=== PATIENT | female | born 2000 | race Caucasian/White ===

== ENCOUNTER → 2018-01-15 | Outpatient (CLI) | payer BC | LOC: COL.RAD 16:00 | DX: N83.201 Unspecified ovarian cyst, right side (principal) | CPT/HCPCS: Q9967 ==

== ENCOUNTER 2018-11-10 18:18 | Outpatient (CLI) | payer MEDICAID ==
[~2018-11-10] VITALS: Ht 180.3 cm; Wt 86.8 kg
--- NOTE | 2018-11-10 18:05 | NUR ---
Patient ambulatory to LR4 with significant other, changed into gown, FHR/TOCO monitor placed. Patient states she thinks her water broke water around 0200 am and has continues to trickle, denies any regular contractions or vaginal bleeding. SVE-2-3/70/-2 and amniotest negative and white/yellow discharge on gloves. Plan of care discussed.
[2018-11-10 18:15] VITALS: BP 118/63; PULSE 101; TEMP 97.7
[2018-11-10 18:30] VITALS: BP 118/63; PULSE 101; TEMP 98.7
[2018-11-10] MEDS ORDERED: IRON TABLETS325 MG PO (18:42)
[2018-11-10] MEDS ORDERED: PRENATAL MVI (18:42)
--- NOTE | 2018-11-10 19:05 | NUR ---
SVE unchanged from previous exam. Amnitrace negative. Bag of water felt on exam and no return of fluid with SVE. Category 1 FHR tracing. Pt feels comfortable going home.
--- NOTE | 2018-11-10 19:15 | NUR ---
Discharge instructions reviewed with patient and FOB, pt verbalized understanding. Return precautions reviewed. Pt seen ambulating off unit with FOB.
== END 2018-11-10 19:15 | disposition home or self-care (01) ==
LOC: LDRO 18:18 → LDR 18:18 → LDRO 19:15 → LDR 11-12 16:00
DX: O42.92 Full-term premature rupture of membranes, unspecified as to length of time between rupture and onset of labor (principal); Z3A.37 37 weeks gestation of pregnancy
CPT/HCPCS: OP

== ENCOUNTER 2018-11-13 14:16 | Outpatient (CLI) | payer BC, MEDICAID ==
[~2018-11-13] VITALS: Ht 180.3 cm; Wt 86.8 kg
[~2018-11-13 14:16] MED LIST: IRON TABLETS325 MG PO; PRENATAL MVI
--- NOTE | 2018-11-13 14:20 | NUR ---
Patient ambulatory onto unit for labor check. Patient reports leaking of fluid and contractions. States she was seen over the weekend for leaking of fluid. Patient reports good movement, denies vaginal bleeding. , 37.4wks. GBS-. Denies or medical complications. EFMs on, VS taken. AmniTrace negative. AmniSure completed per order. SVE /-2 per Aguila HAMPTON. Assessment completed.
[2018-11-13 14:30] VITALS: BP 126/62; PULSE 95; TEMP 97.7
[2018-11-13 15:00] VITALS: BP 116/55; PULSE 105
--- NOTE | 2018-11-13 15:10 | NUR ---
Patient sitting upright in bed. EFMs adjusted. Patient updated to Negative AmniSure. Discharge orders per . Patient verbalizes understanding. Will continue to monitor FHR and prepare for discharge home.
[2018-11-13 15:30] VITALS: BP 100/59; PULSE 85
--- NOTE | 2018-11-13 15:45 | NUR ---
Discharge instructions given to patient. Return labor precautions reviewed. Patient instructed to return with any decreased movement, leaking of fluid, vaginal bleeding, or regular/painful contractions. Verbalized understanding. Questions answered. Ambulatory off of unit at this time.
== END 2018-11-13 15:45 | disposition home or self-care (01) ==
LOC: LDRO 14:16
DX: O62.9 Abnormality of forces of labor, unspecified (principal); O42.92 Full-term premature rupture of membranes, unspecified as to length of time between rupture and onset of labor; Z3A.37 37 weeks gestation of pregnancy

== ENCOUNTER 2018-11-15 16:38 | Inpatient (IN) | payer BC, MEDICAID ==
[~2018-11-15] VITALS: Ht 180.3 cm; Wt 86.8 kg
[2018-11-15] VITALS (18 sets, daily range): BP systolic 98–128; BP diastolic 53–76; PULSE 77–113; TEMP 97.9–98.2
--- NOTE | 2018-11-15 17:00 | NUR ---
G1 at 37.6 weeks gestation to LDR5 with c/o contractions q2-3 minutes. Patient changed into gown and wedged left in bed. EFMs explained and applied. FHR 150 bpm and reactive. CTX q2-4 minutes per toco, patient breathing through them. VSS. Patient reports good movement, denies leaking of fluid or vaginal bleeding. Dr. Holland on unit and to patient room. SVE by Dr. Holland /bulgy bag of water. Orders to admit with routine labors orders received. Plan of care reviewed.
--- NOTE | 2018-11-15 17:30 | NUR ---
to bedside. AROM at 1729, moderate amount of clear fluid noted with exam. SVE 5/100/-2 per provider. Plan of care discussed. Questions answered. Mother and FOB at bedside. Call light within reach.
[2018-11-15 17:38] LABS: BASO % 0.2 % (0.0-2.0); EOS % 0.3 % (0-4.0); GRAN # 8.3 (1.4-6.5); GRAN % 69.9 % (42.2-75.2); HEMOGLOBIN 11.5 g/dl (12.0-15.0); LYMPH # 2.6 (1.2-3.4); MEAN CELL VOLUME 97 fl (80.0-95.0); MEAN CORPUSCULAR HEMOGLOBIN 33 pg (26.0-32.0); MEAN CORPUSCULAR HGB CONC 34 g/dl (33.0-37.0); MEAN PLATELET VOLUME 9.8 fl (7.4-10.4); MONO # 0.8 (0.1-0.6); MONO % 6.8 % (1.7-9.3); PLATELET COUNT 223 K/mm3 (130-400); RED BLOOD COUNT 3.49 M/mm3 (4.10-5.30); REDCELL DISTRIBUTION WIDTH-CV 12.6 % (11.5-14.5)
--- NOTE | 2018-11-15 17:50 | NUR ---
Patient up to bathroom. Breathing through contractions. Patient requests to ambulate around room and use birthing ball. Plan of care discussed. Questions answered. Mother and FOB remain supportive at bedside. Call light within reach.
--- NOTE | 2018-11-15 18:45 | NUR ---
182 - Pt requesting epidural, Rivas Wahl CRNA notified. Will come to hospital. 1829 - Pt requesting SVE prior to epidural, 184 - ADRYAN Burdick at bedside. Epidural procedure, risks, and benefits reviewed with patient, pt verbalized understanding. Pt positioned to sitting on edge of bed. 1844 - Single shot by ADRYAN Burdick. Pt denies any adverse reactions. 1849 - Pt positioned to wedge left with pillow support. Call light within reach. Safety precautions and plan of care reviewed. See anesthesia record. 1854 - SVE by
[2018-11-15] MEDS ORDERED: MOTRIN 800800 MG/TAB PO (19:03)
[2018-11-15] MEDS ORDERED: PERCOCET 325 MG1 TA2 PO (19:03)
--- NOTE | 2018-11-15 20:40 | NUR ---
2029 - Pt called out stating she was feeling more pressure. SVE by Dr. Holland complete and +2. Pt educated on pushing techniques. Intial push at this time. 2031 - Nogueira catheter removed at this time. 100 mL clear yellow urine. Pt pushing well with contractions. 2037 - Dr. Holland gowned and gloved at perineum. Nursery at bedside. 2039 - Spontaneous vaginal delivery of viable infant girl. Infant placed on mothers abdomen, care of assumed to MEMO Hutson. Cord clamped by Dr. Holland and cut by FOB. Pitocin off at this time. 2042 - Spontaneous delivery of intact placenta. Pitocin infusing at 333 mL/hr. Fundal massage by this RN, boggy with free flow, fundus firms up after massage. Dr. Holland repairs right labial laceration and 1st degree perineal laceration. 2054 - Pericare provided. New chux pad beneath patient. Ice pack to perineum. Pt repositioned in bed for comfort. recovery started. See physician delivery note.
--- NOTE | 2018-11-16 01:45 | NUR ---
Pt able to lift and hold each leg off of bed for 5 seconds. Pt positioned to sitting on edge of bed. Epidural catheter removed. Tip smooth, blue, and intact. Pt tolerated well. Pt able to ambulate to bathroom independently. Pt able to void 900 mL. Pericare explained and provided. New mesh panties and peripad on. Clean gown on. Pt educated on what to expect with bleeding and need for 2 more measured voids. Pt ambulated to room 207 with belongings.
[2018-11-16 02:00] VITALS: BP 128/59; PULSE 112; TEMP 97.7
[2018-11-16 07:00] VITALS: BP 95/51; PULSE 85; TEMP 98.9
--- NOTE | 2018-11-16 09:06 | NUR ---
Initial visit; Mom indisposed, Dad and Grandmother present. Hand Glove Cleaner offered congratulations and God's blessings for the of their daughter and thanked them for choosing our hospital.
[2018-11-16 11:20] VITALS: BP 121/74; PULSE 105; TEMP 97.9
[2018-11-16 16:40] VITALS: BP 107/48; PULSE 71; TEMP 97.9
[2018-11-16 20:30] VITALS: BP 108/56; PULSE 80; TEMP 98.8
[2018-11-17 07:30] VITALS: BP 102/53; PULSE 73; TEMP 97
== END 2018-11-17 09:50 | disposition home or self-care (01) | DRG 807 ==
LOC: LDRO 16:38 → OB 18:20 → LDR 18:20 → OB 11-16 01:50
PROVIDERS: ADMIT Obstetrics & Gynecology
PROC: 10E0XZZ Delivery of Products of Conception, External Approach (ICD-10-PCS; principal; 2018-11-15)
PROC: 0HQ9XZZ Repair Perineum Skin, External Approach (ICD-10-PCS; 2018-11-15)
DX: O62.0 Primary inadequate contractions (principal); Z37.0 Single live birth; O70.0 First degree perineal laceration during delivery; Z3A.37 37 weeks gestation of pregnancy
CPT/HCPCS: J2590; J2795; J7120

== ENCOUNTER 2021-12-16 12:34 | Emergency (ER) | payer OTHER ==
[~2021-12-16] VITALS: Ht 180.3 cm; Wt 71.4 kg
[~2021-12-16 12:34] MED LIST changes: +MOTRIN 800800 MG/TAB PO; +PERCOCET 325 MG1 TA2 PO
[2021-12-16 12:43] VITALS: TEMP 98.3
[2021-12-16 13:42] LABS: HEMOGLOBIN 11.1 g/dl (12.5-16.0); MEAN CELL VOLUME 94 fl (80.0-100.0); MEAN CORPUSCULAR HEMOGLOBIN 31 pg (27-31); MEAN CORPUSCULAR HGB CONC 33 g/dl (33.0-37.0); MEAN PLATELET VOLUME 9.7 fl (7.4-10.4); PLATELET COUNT 187 K/mm3 (130-400); RED BLOOD COUNT 3.55 M/mm3 (4.10-5.30); REDCELL DISTRIBUTION WIDTH-CV 12.4 % (11.5-14.5)
[2021-12-16 13:45] LABS: HEMATOCRIT 33.5 % (37.0-47.0)
[2021-12-16 13:55] LABS: ALBUMIN 3.4 gm/dL (3.5-5.0); BILIRUBIN,TOTAL 1.6 mg/dL (0.2-1.2); CALCIUM 8.7 mg/dL (8.4-10.2); CREATININE, serum 0.79 mg/dL (0.57-1.11); POTASSIUM 3.3 mmol/L (3.5-4.5); TOTAL PROTEIN 6.8 gm/dL (6.2-8.1)
[2021-12-16 14:10] LABS: BAND 22 % (0-10); LYMPHOCYTE 5 % (20.0-51.0); NEUTROPHILS 69 % (42.0-75.2); PLATELET ESTIMATE NORMAL (NORMAL)
[2021-12-16 14:46] LABS: COLLECTION METHOD CLEAN CATCH
[2021-12-16 14:56] LABS: MUCOUS Present (NOT PRESENT); URINE BACTERIA Moderate /hpf (NONE SEEN)
[2021-12-16 14:58] LABS: PH 5.5 (5-8); URINE APPEARANCE Cloudy (CLEAR/HAZY); URINE COLOR Yellow (YELLOW); URINE GLUCOSE Negative (NEGATIVE); URINE KETONE TRACE (NEGATIVE); URINE PROTEIN(semi-quant) 1+ (NEGATIVE)
[2021-12-16 14:59] LABS: URINE BLOOD Negative (NEGATIVE); URINE NITRATE Negative (NEGATIVE)
[2021-12-16] MEDS ORDERED: PROMETHAZINE D473 ML PO (15:40)
[2021-12-16] MEDS ORDERED: CEPHALEXIN500 M1 PO (15:41)
[2021-12-16 15:51] VITALS: BP 99/54; PULSE 106
== END 2021-12-16 15:51 | disposition home or self-care (01) ==
LOC: COL.ER 12:34
PROVIDERS: Physician Assistant
DX: K52.9 Noninfective gastroenteritis and colitis, unspecified (principal); E87.6 Hypokalemia; R78.81 Bacteremia; Z88.0 Allergy status to penicillin; Z32.02 Encounter for pregnancy test, result negative; Z28.310 Unvaccinated for COVID-19
CPT/HCPCS: J1885; J2405; J7030

== ENCOUNTER 2023-01-16 06:12 | Inpatient (IN) | payer MEDICAID ==
[2023-01-16] VITALS (21 sets, daily range): BP systolic 70–122; BP diastolic 51–87; PULSE 71–111; TEMP 97.8–99
[~2023-01-16] VITALS: Ht 180.3 cm; Wt 92.3 kg
[~2023-01-16 06:12] MED LIST changes: +CEPHALEXIN500 M1 PO; +COLACE 100100 MG/CAP PO; +PRENATAL TABLET PO; +PROMETHAZINE D473 ML PO; +VALTREX1 GM PO
--- NOTE | 2023-01-16 06:20 | NUR ---
PT AMBULATORY TO UNIT ALONE, SAID HER MOM "WOULD BE COMING IN ALITTLE." PT REPORTS FEELING IRREGULAR CTX NOT PAINFUL EVERY 6-10 MIN, NO LOF, NO VAGINAL BLEEDING OR SPOTTING, AND POSITIVE MOVEMENT. PT VS STABLE EFM CAT 1, FHR 150'S, ACCELS, NO DECELS. CTX EVERY 3-4 MIN ON MONITOR. PT POSITIVE AND SOCIALIZING.
[2023-01-16 07:28] LABS: BASO % 0.3 % (0.0-2.0); EOS % 0.6 % (0.0-4.0); GRAN # 4.3 K/mm3 (1.4-6.5); GRAN % 59.8 % (42.2-75.2); HEMOGLOBIN 12.3 g/dl (12.5-16.0); LYMPH # 2.2 K/mm3 (1.2-3.4); LYMPH % 30.3 % (20.0-51.0); MEAN CELL VOLUME 99 fl (80.0-100.0); MEAN CORPUSCULAR HEMOGLOBIN 34 pg (27-31); MEAN CORPUSCULAR HGB CONC 35 g/dl (33.0-37.0); MEAN PLATELET VOLUME 9.7 fl (7.4-10.4); MONO # 0.6 K/mm3 (0.1-0.6); MONO % 8.4 % (1.7-9.3); PLATELET COUNT 187 K/mm3 (130-400); RED BLOOD COUNT 3.61 M/mm3 (4.10-5.30)
[2023-01-16 07:29] LABS: HEMATOCRIT 35.7 % (37.0-47.0)
--- NOTE | 2023-01-16 08:15 | NUR ---
0814 AT BEDSIDE. 0815 AROM SMALL AMOUNT OF CLEAR FLUID, PT TOLERATES WELL. PT VS STABLE, EFM CAT 1, PT REPOSITIONED COMFORTABLY IN BED.
--- NOTE | 2023-01-16 09:33 | NUR ---
0923 JAVID CORNELIUS AT BEDSIDE FOR EPIDURAL PLACEMENT. PT SITTING AT EDGE OF BED, VS STABLE, EFM CAT 1. 0933 TEST DOSE ADMINISTERED PER JAVID BALL MACHINE OPERATOR. PT TOLERATED WELL. PT REPOSITIONED COMFORTABLY, VS STABLE, [facility] CAT 1. 0936 LOW BP, EPHEDRINE 2ML GIVEN PER JAVID BALL MACHINE OPERATOR VORB. 0940 PT VS STABLE, [facility] CAT 1
--- NOTE | 2023-01-16 10:38 | NUR ---
1000 SVE PER THIS RN, . THIS RN EXPLAINS TO PT SHE IS CLOSE, PT ANXIOUS SAYING "NO NO NO NO I CAN STILL FEEL, I DON'T WANT TO PUSH!" PT REPOSITIONED TO [facility] AND FEELS CALMER BECAUSE SHE CAN "FEEL MORE NUMB." 1006 ATTEMPTED TO CONTACT , NO ANSWER, VOICEMAIL LEFT. NURSERY AND CHARGE NURSE NOTIFIED. ROOM SET FOR DELIVERY. PT VS STABLE, EFM CAT 1. MOM AT BEDSIDE FOR SUPPORT. 1032 AT BEDSIDE, SVE COMPLETE, INSTRUCTS PT TO START PUSHING WITH EACH CONTRACTION. 1038 OF VIABLE MALE , NUCHAL CORD X1. NURSERY ASSUMES CARE OF BABY. MATERNAL VS STABLE. 1044 OF PLACENTA. BEGINS REPAIR OF 2ND DEGREE LACERATION. FUNDUS BOGGY, LARGE AMOUNT OF LOCHIA. THIS RN BEGINS FIRM FUNAL MASSAGE. 1048 METHERGINE ADMINISTERED IM PER DR.WEBER DAVIES. FUNDUS BOGGY, MODERATE AMOUND OF LOCHIA. 1050 CYTOTECH ADMINISTERED RECTALLY PER DR.WEBER DAVIES. FUNDUS BOGGY, MODERATE AMOUNT OF LOCHIA. 1054 HEMABATE ADMINISTERED IM PER DR.WEBER DAVIES. FUNDUS FIRM AT UMBILICUS SMALL AMOUNT OF LOCHIA. MATERNAL VS STABLE, REPORTS NOT FEELING DIZZY OR NAUSEOUS. ROOM SET BACK TO NORMAL, ICE PACK PAD APPLIED TO PT PERINEUM, FUNDUS STILL FIRM AT UMBILICUS WITH SMALL AMOUNT OF LOCHIA.
[2023-01-16 11:56] LABS: HEMOGLOBIN 10.9 g/dl (12.5-16.0)
[2023-01-16 11:58] LABS: HEMATOCRIT 32.3 % (37.0-47.0)
--- NOTE | 2023-01-16 16:05 | NUR ---
PATIENT ASSISTED TO SIT ON SIDE OF THE BED, PATIENT DOES NOT FEEL DIZZY OR LIGHTHEADED. PATIENT ASSISTED TO STANDING AND REPORTS FEELING STEADY ON HER FEET. PATIENT AMBULATES TO RESTROOM WITH A STANDBY ASSIST, PATIENT VOIDS AND PERICARE PROVIDED BY PATIENT. PATIENT ASSISTED INTO CLEAN GOWN AND AMBULATES TO ROOM 214. PATIENT ORIENTED TO ROOM AND INSTRUCTED ON MEASURING VOIDS AND SHOWERING.
[2023-01-16] MEDS ORDERED: MOTRIN 800800 MG/TAB PO (18:26)
[2023-01-16 19:26] LABS: HEMATOCRIT 29.1 % (37.0-47.0)
--- NOTE | 2023-01-16 19:36 | NUR ---
DR. CAMPBELL NOTIFIED WITH MOTHER'S RPT HGB LEVEL OF 10.[address] CAMPBELL GAVE NO NEW ADDITIONAL ORDERS AT THIS TIME. NO RPT HGB'S ORDERED.
[2023-01-17] VITALS (7 sets, daily range): BP systolic 87–138; BP diastolic 33–84; PULSE 75–92; TEMP 97.8–98.9
--- NOTE | 2023-01-17 09:59 | NUR ---
Initial visit; Patient thanked [employer] for offering congratulations and God's blessings for the of her son. [employer] thanked patient for choosing [facility]. Patient had no other needs.
[2023-01-17] MEDS ORDERED: BREASTPUMP MC (12:34)
[2023-01-17] MEDS ORDERED: MOTRIN 800800 MG/TAB PO (12:34)
[2023-01-18 07:00] VITALS: BP 101/58; PULSE 86; TEMP 98.2
--- NOTE | 2023-01-18 08:15 | NUR ---
DISCHARGE PAPERS, APPOINTMENT, AND PRESCRIPTIONS GIVEN AND DISCUSSED. QUESTIONS INVITED AND ANSWERED AT THIS TIME.
--- NOTE | 2023-01-18 09:14 | NUR ---
PATIENT, BABY, AND SUPPORT PERSON ESCORTED OFF UNIT TO VEHICLE BY THIS RN.
== END 2023-01-18 09:14 | disposition home or self-care (01) | DRG 806 ==
LOC: LDR 06:12 → OB 13:26
PROVIDERS: ADMIT Obstetrics & Gynecology
PROC: 10E0XZZ Delivery of Products of Conception, External Approach (ICD-10-PCS; principal; 2023-01-16)
PROC: 0KQM0ZZ Repair Perineum Muscle, Open Approach (ICD-10-PCS; 2023-01-16)
PROC: 3E033VJ Introduction of Other Hormone into Peripheral Vein, Percutaneous Approach (ICD-10-PCS; 2023-01-16)
PROC: 10907ZC Drainage of Amniotic Fluid, Therapeutic from Products of Conception, Via Natural or Artificial Opening (ICD-10-PCS; 2023-01-16)
DX: O76 Abnormality in fetal heart rate and rhythm complicating labor and delivery (principal); O72.1 Other immediate postpartum hemorrhage; Z37.0 Single live birth; O98.32 Other infections with a predominantly sexual mode of transmission complicating childbirth; A60.09 Herpesviral infection of other urogenital tract; O70.1 Second degree perineal laceration during delivery; Z3A.39 39 weeks gestation of pregnancy; Z88.0 Allergy status to penicillin; O69.81X0 Labor and delivery complicated by cord around neck, without compression, not applicable or unspecified; Z23 Encounter for immunization
CPT/HCPCS: J2210; J2590; J2795; J7120